=== PATIENT | female | born 1945 | race Caucasian/White ===

== ENCOUNTER 2022-01-03 21:42 | Outpatient (REF) | payer SELFPAY | END 2022-01-03 21:43 | disposition home or self-care (01) | LOC: HO.MMNH1L 21:42 | PROVIDERS: Visit Provider Family Medicine | DX: Z13.89 Encounter for screening for other disorder (principal) ==

== ENCOUNTER 2022-03-31 11:04 | Outpatient (REF) | payer SELFPAY ==
[2022-03-29 06:31] LABS: MANUAL DIFF FLAG NO
[2022-03-29 06:46] LABS: Basophils Percent Auto 0.7 % (0-2); Eosinophils Absolute Auto 0.2 X10*3/uL (0.0-0.4); Hematocrit 27.6 % (37.0-47.0); Hemoglobin 8.6 g/dl (12.0-16.0); Imm Gran Abs Auto 0.02 X10*3/uL (0.00-0.03); Imm Gran Pct Auto 0.4 % (0.0-0.4); Lymphocytes Absolute Auto 1.4 X10*3/uL (1.2-4.9); Lymphocytes Percent Auto 24.3 % (20-40); Mean Corpuscular HGB Conc 31.2 g/dl (31.0-35.0); Mean Corpuscular Volume 102.6 fL (80.0-98.0); Mean Platelet Volume 9.9 fL (9.4-12.3); Monocytes Absolute Auto 0.6 X10*3/uL (0.1-1.2); Monocytes Percent Auto 10.6 % (2-11); Neutrophils Absolute Auto 3.3 x10*3/uL (2.0-8.3); Platelet Count 244 X10*3/uL (160-400); Red Blood Count 2.69 X10*6/uL (4.20-5.50); Red Cell Distribution Width 16.3 % (11.0-16.0); White Blood Count 5.6 X10*3/uL (4.8-10.8)
[2022-03-29 07:49] LABS: Estimated Glomerular Filt Rate 10
[2022-03-29 07:52] LABS: Anion Gap 16 (12-20); Blood Urea Nitrogen 39 mg/dL (9-16); Calcium 9.9 mg/dL (8.4-10.2); Carbon Dioxide 33 mmol/L (22-29); Chloride 96 mmol/L (96-108); Glucose Random 99 mg/dL (60-115); Potassium 4.5 mmol/L (3.3-5.1); Sodium 140 mmol/L (135-145)
== END 2022-03-31 11:05 | disposition home or self-care (01) ==
LOC: HO.MMNH1L 11:04
PROVIDERS: Visit Provider Family Medicine
DX: N18.6 End stage renal disease (principal)
CPT/HCPCS: 36415; 80048; 85025

== ENCOUNTER 2022-04-04 | Outpatient (REF) | payer MEDICARE, SELFPAY | END 2022-04-04 00:01 | disposition home or self-care (01) | LOC: HO.MMNH1L | PROVIDERS: Visit Provider Family Medicine | DX: Z13.89 Encounter for screening for other disorder (principal) ==

== ENCOUNTER 2022-05-16 07:04 | Outpatient (REF) | payer SELFPAY ==
[2022-05-16 06:44] LABS: Hematocrit 34.2 % (37.0-47.0); Hemoglobin 10.7 g/dl (12.0-16.0); Mean Corpuscular HGB Conc 31.3 g/dl (31.0-35.0); Mean Corpuscular Hemoglobin 30.1 pg (27.0-33.0); Mean Corpuscular Volume 96.3 fL (80.0-98.0); Platelet Count 139 X10*3/uL (160-400); Red Blood Count 3.55 X10*6/uL (4.20-5.50); Red Cell Distribution Width 18.1 % (11.0-16.0); White Blood Count 8.9 X10*3/uL (4.8-10.8)
[2022-05-16 07:18] LABS: Anion Gap 20 (12-20); Blood Urea Nitrogen 62 mg/dL (9-16); Calcium 9.3 mg/dL (8.4-10.2); Carbon Dioxide 27 mmol/L (22-29); Chloride 92 mmol/L (96-108); Estimated Glomerular Filt Rate 7; Glucose Random 93 mg/dL (60-115); Sodium 134 mmol/L (135-145)
== END 2022-05-16 07:05 | disposition home or self-care (01) ==
LOC: HO.MMNH1L 07:04
PROVIDERS: Visit Provider Family Medicine
DX: N18.6 End stage renal disease (principal)
CPT/HCPCS: 36415; 80048; 85027

== ENCOUNTER 2022-05-23 06:16 | Outpatient (REF) | payer MEDICARE, SELFPAY ==
[2022-05-23 06:24] LABS: MANUAL DIFF FLAG NO
[2022-05-23 06:44] LABS: Basophils Absolute Auto 0.1 X10*3/uL (0.0-0.2); Basophils Percent Auto 0.7 % (0-2); Eosinophils Absolute Auto 0.2 X10*3/uL (0.0-0.4); Eosinophils Percent Auto 2.1 % (0-4); Hematocrit 29.7 % (37.0-47.0); Hemoglobin 9.2 g/dl (12.0-16.0); Imm Gran Abs Auto 0.03 X10*3/uL (0.00-0.03); Imm Gran Pct Auto 0.4 % (0.0-0.4); Lymphocytes Absolute Auto 0.7 X10*3/uL (1.2-4.9); Lymphocytes Percent Auto 9.3 % (20-40); Mean Corpuscular Hemoglobin 30.9 pg (27.0-33.0); Mean Corpuscular Volume 99.7 fL (80.0-98.0); Mean Platelet Volume 10.8 fL (9.4-12.3); Monocytes Absolute Auto 0.6 X10*3/uL (0.1-1.2); Monocytes Percent Auto 7.5 % (2-11); Neutrophils Absolute Auto 6.1 x10*3/uL (2.0-8.3); Platelet Count 183 X10*3/uL (160-400); Red Blood Count 2.98 X10*6/uL (4.20-5.50); Red Cell Distribution Width 18.4 % (11.0-16.0); White Blood Count 7.6 X10*3/uL (4.8-10.8)
[2022-05-23 07:33] LABS: Anion Gap 17 (12-20); Blood Urea Nitrogen 49 mg/dL (9-16); Calcium 9.3 mg/dL (8.4-10.2); Carbon Dioxide 26 mmol/L (22-29); Chloride 97 mmol/L (96-108); Estimated Glomerular Filt Rate 7; Glucose Random 89 mg/dL (60-115); Potassium 5.4 mmol/L (3.3-5.1); Sodium 135 mmol/L (135-145)
== END 2022-05-23 06:17 | disposition home or self-care (01) ==
LOC: HO.MMNH1L 06:16
PROVIDERS: Visit Provider Family Medicine
DX: N18.6 End stage renal disease (principal)
CPT/HCPCS: 36415; 80048; 85025

== ENCOUNTER 2022-05-30 06:36 | Outpatient (REF) | payer MEDICARE, SELFPAY ==
[2022-05-30 06:31] LABS: MANUAL DIFF FLAG NO
[2022-05-30 06:50] LABS: Basophils Percent Auto 0.5 % (0-2); Eosinophils Absolute Auto 0.2 X10*3/uL (0.0-0.4); Eosinophils Percent Auto 4.3 % (0-4); Hematocrit 29.5 % (37.0-47.0); Hemoglobin 9.1 g/dl (12.0-16.0); Imm Gran Abs Auto 0.01 X10*3/uL (0.00-0.03); Imm Gran Pct Auto 0.2 % (0.0-0.4); Lymphocytes Absolute Auto 0.9 X10*3/uL (1.2-4.9); Lymphocytes Percent Auto 15.7 % (20-40); Mean Corpuscular HGB Conc 30.8 g/dl (31.0-35.0); Mean Corpuscular Hemoglobin 30.7 pg (27.0-33.0); Mean Corpuscular Volume 99.7 fL (80.0-98.0); Mean Platelet Volume 10.9 fL (9.4-12.3); Monocytes Absolute Auto 0.6 X10*3/uL (0.1-1.2); Monocytes Percent Auto 9.9 % (2-11); Neutrophils Absolute Auto 3.9 x10*3/uL (2.0-8.3); Neutrophils Percent Auto 69.4 % (45-73); Platelet Count 134 X10*3/uL (160-400); Red Blood Count 2.96 X10*6/uL (4.20-5.50); Red Cell Distribution Width 18.9 % (11.0-16.0); White Blood Count 5.6 X10*3/uL (4.8-10.8)
[2022-05-30 07:33] LABS: Anion Gap 19 (12-20); Blood Urea Nitrogen 53 mg/dL (9-16); Carbon Dioxide 30 mmol/L (22-29); Chloride 95 mmol/L (96-108); Estimated Glomerular Filt Rate 7; Glucose Random 96 mg/dL (60-115); Sodium 139 mmol/L (135-145)
== END 2022-05-30 06:37 | disposition home or self-care (01) ==
LOC: HO.MMNH1L 06:36
PROVIDERS: Visit Provider Family Medicine
DX: S82.845D Nondisplaced bimalleolar fracture of left lower leg, subsequent encounter for closed fracture with routine healing (principal); N18.6 End stage renal disease
CPT/HCPCS: 36415; 80048; 85025

== ENCOUNTER 2022-06-03 16:17 | Inpatient (IN) | payer MEDICARE, BC, SELFPAY ==
[2022-06-03] VITALS (9 sets, daily range): BP systolic 90–141; BP diastolic 36–79; PULSE 64–87; RESP 13–33; TEMP 36.8–37.2; O2SAT 82–100; BMI 23.6
--- NOTE | ~2022-06-03 | XR_ITS ---
EXAMINATION: XR FOOT, LEFT CLINICAL INFORMATION: Pain. Question of osteomyelitis COMPARISON: None TECHNIQUE: AP, lateral, and oblique views of the left foot. XR/XR foot LT min 3V FINDINGS/IMPRESSION: Ulceration of the soft tissues posterior to the calcaneus and lateral to the fifth metatarsal base. Mild periosteal reaction along the lateral base of the fifth metatarsal, which could represent osteomyelitis in this location. No cortical destruction. Diffuse osseous demineralization. Previous arthrodesis of the tibiotalar and subtalar joints. No fractures.
--- NOTE | ~2022-06-03 | XR_ITS ---
EXAMINATION: XR CHEST CLINICAL INFORMATION: Chest pain, shortness of breath. COMPARISON: None TECHNIQUE: Frontal view of the chest was obtained. FINDINGS: There are increased pulmonary vascular markings. The heart is mildly enlarged. Aortic valve prosthesis is seen in place. The mediastinal structures are unremarkable. Multilevel sternotomy wires are intact. XR/XR chest 1V IMPRESSION: CHF and cardiomegaly
--- NOTE | ~2022-06-03 | XR_ITS ---
EXAMINATION: XR CHEST CLINICAL INFORMATION: This is a 77-year-old female with shortness of breath. Status post central line placement. COMPARISON: None TECHNIQUE: Frontal view of the chest was obtained. FINDINGS: A left-sided central venous catheter is seen with its tip extending to the junction of the brachiocephalic vein and the superior vena cava, respectively. There is no pneumothorax. There are increased pulmonary vascular markings. These appear increased since the most recent previous examination with increasing edema bilaterally. The heart is mildly enlarged. Aortic valve prosthesis is seen in place. The mediastinal structures are unremarkable. Multilevel sternotomy wires are intact. XR/XR chest 1V IMPRESSION: 1. The left-sided central venous catheter is seen with its tip at the junction of the brachiocephalic vein with the superior vena cava. No pneumothorax is seen. 2. CHF and cardiomegaly
--- NOTE | ~2022-06-03 | CT_ITS ---
EXAMINATION: CT ANGIOGRAM OF THE CHEST WITH AND WITHOUT CONTRAST (CT PULMONARY ANGIOGRAM FOR PE) CLINICAL INFORMATION: Reason for Exam + dimer, cp,s ob COMPARISON: None TECHNIQUE: Prior to contrast administration, noncontrast localization images were obtained. Subsequently, multidetector volumetric imaging was performed from the thoracic inlet to below the diaphragms following the administration of 65 mL Omnipaque 350 intravenous contrast. No contrast reaction reported Sagittal, coronal, and MIP oblique sagittal reformatted images were obtained on the CT workstation, uploaded to PACS, and reviewed. This CT examination was performed using dose optimization techniques as appropriate, variously including the following: *Automated exposure control *Adjustment of mA and/or kV according to patient size (this includes techniques or standardized protocols for targeted exams where dose is matched to indication/reason for exam; i.e. extremities or head) *Use of iterative reconstruction technique Total exam dose-length product 351 mGy-cm FINDINGS: QUALITY OF STUDY/CONTRAST BOLUS: Satisfactory. PULMONARY ARTERIES: No central or segmental pulmonary emboli. THORACIC AORTA: Atherosclerotic but normal caliber. Aortic valve replacement. LUNG: Low-density parenchymal consolidation throughout the dependent right lower lobe with patchy opacities throughout the right upper lobe compatible with multifocal pneumonia. Dependent atelectasis within the left lower lobe. Interstitial edema. PLEURA: Small-moderate right and small left pleural effusions. MEDIASTINUM: Marked cardiomegaly. No pericardial effusion. No obvious mediastinal adenopathy. No evidence of septal bowing or right heart strain. There is reflux of contrast into the hepatic veins suggestive of right heart failure. CHEST WALL/AXILLA: No axillary or internal mammary lymphadenopathy. OSSEOUS STRUCTURES: No acute or suspicious osseous abnormality. UPPER ABDOMEN: Unremarkable. CT/CT angio chest PE protocol IMPRESSION: * No pulmonary embolism. * Multifocal pneumonia within the right lung with dense consolidation within the right lower lobe, with accompanying small-moderate right pleural effusion. * Small left pleural effusion with accompanying atelectasis. * Marked cardiomegaly and interstitial edema or pelvis. * Reflux of contrast into the hepatic veins suggesting right heart decompensation. VTE: negative
--- NOTE | 2022-06-03 13:11 | ECG_ITS ---
Test Reason : CHEST PAIN Blood Pressure : / mmHG Vent. Rate : 091 BPM Atrial Rate : 000 BPM P-R Int : 000 ms QRS Dur : 134 ms QT Int : 416 ms P-R-T Axes : 000 -60 110 degrees QTc Int : 511 ms Probable sinus with frequent PACs and aberrant conduction Left axis deviation Left ventricular hypertrophy with QRS widening and repolarization abnormality ( R in aVL , Aldie product , Romhilt-James ) Cannot rule out Septal infarct (cited on or before 03-JUN-2022) Abnormal ECG When compared with ECG of 03-JUN-2022 16:47, possible rhythm change Referred By: Angeles Crawford Electronically Signed By:CRESCENCIO BARRETT
--- NOTE | 2022-06-03 16:38 | ECG_ITS ---
Test Reason : CHEST PAIN Blood Pressure : / mmHG Vent. Rate : 086 BPM Atrial Rate : 000 BPM P-R Int : 000 ms QRS Dur : 130 ms QT Int : 404 ms P-R-T Axes : 000 -64 097 degrees QTc Int : 483 ms Atrial fibrillation Left axis deviation Left ventricular hypertrophy with QRS widening ( R in aVL , Nasim product ) Cannot rule out Septal infarct , age undetermined Abnormal ECG No previous ECGs available Referred By: Angeles Crawford Electronically Signed By:ANNIE JULES MD
--- NOTE | 2022-06-03 16:45 | ED.GENADULT ---
HPI - General Adult General Chief complaint: Dyspnea Stated complaint: CP/SOB Time Seen by Provider: 06/03/22 16:37 Source: patient Mode of arrival: EMS Limitations: other (poor historian ) History of Present Illness HPI narrative: 77 year old female with a history of triple bypass, HD ( M,W,F, last HD) session today, diabetes presents to the ED today via EMS for chest discomfort and shortness of breath since this afternoon. EMS noted an O2 sat of 85% on room air, does not use oxygen at baseline. She reports that she was lying in bed when the chest pain started and rates her chest discomfort as a 2/10, told ems it was a 7/10. No radiation of symptoms. Associated symptoms include shortness of breath both at rest and with exertion. Unable to obtain a clear history due to patient being poor historian. Denies recent illness, fevers, chills, nausea, vomiting, abdominal pain, urinary sx. Upon patient's arrival she is noted to be speaking in short sentences with increased work of breathing. Related Data Allergies Allergy/AdvReac Type Severity Reaction Status Date / Time Unable to Assess Allergy Unverified 06/03/22 16:38 Review of Systems Review of Systems: Constitutional : No Weight loss, No Fever, No Chills, No Fatigue, No Malaise ENT/Mouth : No sore throat, No Rhinorrhea Eyes: No Eye Pain, No Swelling, No Redness Cardiovascular : + Chest Pain, + SOB, No Dyspnea on Exertion, No Orthopnea, No Edema, No Palpitations Respiratory : No Cough, No Sputum, No Wheezing Gastrointestinal : No Nausea, No Vomiting, No Diarrhea, No Constipation, No abdominal Pain, No Hematochezia, No Melena Genitourinary : No Dysuria, No Urinary Frequency, No Hematuria, Musculoskeletal : No joint pain, No Myalgias, No Joint Swelling Skin : No Skin Lesions, No rash Neuro : No Weakness, No Numbness, No Dizziness, No Headache Psych : No Anxiety/Panic, No Depression All other systems reviewed and are negative Yes all other systems are reviewed and are negative [facility] Past Medical History Attestation statement: The following information was validated with the patient. Source: old records reviewed and nursing notes reviewed Social History Social History Advance Directives: No Physical Exam ED Vital Signs: Vital Signs - 24 hr 06/03/22 16:42 06/03/22 17:52 06/03/22 17:54 Temperature 98.9 F Pulse Rate 87 81 Respiratory Rate 30 H 33 H 13 Blood Pressure 106/64 141/77 H Pulse Oximetry 93 98 Oxygen Delivery Method Nasal Cannula BiPAP Fraction of Inspired Oxygen 40 06/03/22 19:17 06/03/22 19:37 06/03/22 20:00 Temperature Pulse Rate 87 80 Respiratory Rate 21 H 26 H 24 H Blood Pressure 115/79 125/74 Pulse Oximetry 100 96 Oxygen Delivery Method BiPAP BiPAP Fraction of Inspired Oxygen BMI result Body Mass Index 23.6 Appearance: Alert.? Oriented X3.? No acute distress.? Head: Normocephalic, atraumatic, no step-offs or deformities Eyes: Pupils equal, round and reactive to light.? ENT: Pharynx normal.? Neck: Normal inspection.? Neck supple.? CVS: Normal heart rate and rhythm.? Pulses normal.? Respiratory: No respiratory distress.? Breath sounds normal.? Abdomen: Soft and nontender.? Skin: Skin warm and dry.? Normal skin color.? Normal skin turgor.? Extremities: No lower extremity edema.? No calf ttp. 5/5 strength to bilateral upper and lower extremities Back: No midline tenderness, no C-spine tenderness, full range of motion, no CVA tenderness bilaterally Neuro: Oriented X 3.? No motor deficit.? No sensory deficit. CN 2-12 intact Course Reevaluation(s) Reevaluation #1: Right 18 ultrasound-guided IV placed in the right AC, labs obtained. And waiting for analysis Time: 17:40 Reevaluation #2: Based off patient's chest x-ray she is noted to have CHF and cardiomegaly, will hold on administering fluids at this time. Time: 17:50 Reevaluation #3: Spoke to Dr. Mathis who recommends 2 in of nitropaste at this time as well as Dilaudid. Planned for patient to be admitted to the intensive care unit. Time: 18:37 Additional Reevaluation(s): [address] Jett Baer who states it is okay to proceed with a CT angiogram of the chest to rule out PE, he will plan for short treatment 2.5 hours of dialysis tomorrow. 2133 Patient will be admitted to the ICU CHF with hypoxic respiratory faliure. Second trop elevated. ICU aware Medical Decision Making MDM Narrative Medical decision making narrative: 1640 77-year-old female coming from [facility] facility with complaints of chest pressure, shortness of breath. Was noted to be 85 % on room air, patient is not oxygen dependent. She is noted to be tachypneic, hypotensive upon arrival. Physical examination significant for hypotension, tachypnea, hypoxia. Patient is now on a a oximeter eyes are at 10 L saturating 90%. Patient is noted to have diminished breath sounds bilaterally, with crackles in bilateral lower bases. She is noted to be in AFib upon physical exam. With a irregularly irregular rhythm. No signs of fluid overload. Patient mentating well and alert and oriented x4. Likley hypoxic, hypotensive secondary to CHF not infection. Plan at this time is to obtain blood cultures, lactic, basic labs, chest x-ray, urine by straight cath. Patient is a very difficult stick will have to obtain an ultrasound-guided line multiple nursing staff members have tried with no success. Medical Records Medical records reviewed: Yes I reviewed the patient's medical records. Lab Data Lab results reviewed: Yes I reviewed the patient's lab results. Result diagrams: 06/03/22 17:30 06/03/22 17:30 Labs: Lab Results 06/03/22 06/03/22 06/03/22 Range/Units 17:30 17:30 17:30 WBC 12.5 H (4.8-10.8) X10*3/uL RBC 3.75 L D (4.20-5.50) X10*6/uL Hgb 11.7 L D (12.0-16.0) g/dl Hct 37.8 D (37.0-47.0) % MCV 100.8 H (80.0-98.0) fL MCH 31.2 (27.0-33.0) pg MCHC 31.0 (31.0-35.0) g/dl RDW 18.8 H (11.0-16.0) % Plt Count 205 D (160-400) X10*3/uL MPV 10.5 (9.4-12.3) fL Immature Gran % (Auto) 0.4 (0.0-0.4) % Neut % (Auto) 86.9 H (45-73) % Lymph % (Auto) 3.9 L (20-40) % [place] % (Auto) 8.2 (2-11) % Eos % (Auto) 0.2 (0-4) % Baso % (Auto) 0.4 (0-2) % Lymph # (Auto) 0.5 L (1.2-4.9) X10*3/uL [place] # (Auto) 1.0 (0.1-1.2) X10*3/uL Eos # (Auto) 0.0 (0.0-0.4) X10*3/uL Baso # (Auto) 0.1 (0.0-0.2) X10*3/uL Abs Immat Gran (auto) 0.05 H (0.00-0.03) X10*3/uL Absolute Neuts (auto) 10.9 H (2.0-8.3) x10*3/uL Absolute Nucleated RBC 0.000 (0.0-0.012) X10*3/uL Nucleated RBC % (auto) 0.0 (0.0-0.2) /100WBC D-Dimer High Sensitivty NG/ML VBG pH (7.32-7.43) VBG pCO2 mmHg VBG pO2 mmHg VBG HCO3 (22-26) mmol/L VBG O2 Saturation % VBG Base Excess mmol/L Sodium 142 (135-145) mmol/L Potassium 4.1 (3.3-5.1) mmol/L Chloride 93 L (96-108) mmol/L Carbon Dioxide 35 H (22-29) mmol/L Anion Gap 18 (12-20) BUN 24 H D (9-16) mg/dL Creatinine 3.12 H (0.5-1.4) mg/dL Estim Creat Clear Calc 11.1 Estimated GFR 14 Random Glucose 181 H (60-115) mg/dL Lactic Acid (0.5-2.0) mmol/L Calcium 9.8 D (8.4-10.2) mg/dL Magnesium 2.2 (1.6-2.6) mg/dL Total Bilirubin 0.8 (0.0-1.0) mg/dL AST 14 (5-31) U/L ALT < 6 (0-31) U/L Alkaline Phosphatase 111 (39-117) U/L Troponin I High Sens 89.4 H* (<3.5-17.0) ng/L B-Natriuretic Peptide 95098 H (<100) pg/mL Total Protein 7.8 D (6.5-8.0) g/dL Albumin 4.1 D (3.5-5.0) g/dL COVID-19 (BELINDA) (Negative) COVID-19 Clin Com 06/03/22 06/03/22 06/03/22 Range/Units 17:30 17:30 17:30 WBC (4.8-10.8) X10*3/uL RBC (4.20-5.50) X10*6/uL Hgb (12.0-16.0) g/dl Hct (37.0-47.0) % MCV (80.0-98.0) fL MCH (27.0-33.0) pg MCHC (31.0-35.0) g/dl RDW (11.0-16.0) % Plt Count (160-400) X10*3/uL MPV (9.4-12.3) fL Immature Gran % (Auto) (0.0-0.4) % Neut % (Auto) (45-73) % Lymph % (Auto) (20-40) % [place] % (Auto) (2-11) % Eos % (Auto) (0-4) % Baso % (Auto) (0-2) % Lymph # (Auto) (1.2-4.9) X10*3/uL [place] # (Auto) (0.1-1.2) X10*3/uL Eos # (Auto) (0.0-0.4) X10*3/uL Baso # (Auto) (0.0-0.2) X10*3/uL Abs Immat Gran (auto) (0.00-0.03) X10*3/uL Absolute Neuts (auto) (2.0-8.3) x10*3/uL Absolute Nucleated RBC (0.0-0.012) X10*3/uL Nucleated RBC % (auto) (0.0-0.2) /100WBC D-Dimer High Sensitivty 539 NG/ML VBG pH (7.32-7.43) VBG pCO2 mmHg VBG pO2 mmHg VBG HCO3 (22-26) mmol/L VBG O2 Saturation % VBG Base Excess mmol/L Sodium (135-145) mmol/L Potassium (3.3-5.1) mmol/L Chloride (96-108) mmol/L Carbon Dioxide (22-29) mmol/L Anion Gap (12-20) BUN (9-16) mg/dL Creatinine (0.5-1.4) mg/dL Estim Creat Clear Calc Estimated GFR Random Glucose (60-115) mg/dL Lactic Acid 2.6 H* (0.5-2.0) mmol/L Calcium (8.4-10.2) mg/dL Magnesium (1.6-2.6) mg/dL Total Bilirubin (0.0-1.0) mg/dL AST (5-31) U/L ALT (0-31) U/L Alkaline Phosphatase (39-117) U/L Troponin I High Sens (<3.5-17.0) ng/L B-Natriuretic Peptide (<100) pg/mL Total Protein (6.5-8.0) g/dL Albumin (3.5-5.0) g/dL COVID-19 (BELINDA) Negative (Negative) COVID-19 Clin Com See Note 06/03/22 Range/Units 17:39 WBC (4.8-10.8) X10*3/uL RBC (4.20-5.50) X10*6/uL Hgb (12.0-16.0) g/dl Hct (37.0-47.0) % MCV (80.0-98.0) fL MCH (27.0-33.0) pg MCHC (31.0-35.0) g/dl RDW (11.0-16.0) % Plt Count (160-400) X10*3/uL MPV (9.4-12.3) fL Immature Gran % (Auto) (0.0-0.4) % Neut % (Auto) (45-73) % Lymph % (Auto) (20-40) % [place] % (Auto) (2-11) % Eos % (Auto) (0-4) % Baso % (Auto) (0-2) % Lymph # (Auto) (1.2-4.9) X10*3/uL [place] # (Auto) (0.1-1.2) X10*3/uL Eos # (Auto) (0.0-0.4) X10*3/uL Baso # (Auto) (0.0-0.2) X10*3/uL Abs Immat Gran (auto) (0.00-0.03) X10*3/uL Absolute Neuts (auto) (2.0-8.3) x10*3/uL Absolute Nucleated RBC (0.0-0.012) X10*3/uL Nucleated RBC % (auto) (0.0-0.2) /100WBC D-Dimer High Sensitivty NG/ML VBG pH 7.46 H (7.32-7.43) VBG pCO2 54 mmHg VBG pO2 52 mmHg VBG HCO3 39 H (22-26) mmol/L VBG O2 Saturation 79.0 % VBG Base Excess 13.1 mmol/L Sodium (135-145) mmol/L Potassium (3.3-5.1) mmol/L Chloride (96-108) mmol/L Carbon Dioxide (22-29) mmol/L Anion Gap (12-20) BUN (9-16) mg/dL Creatinine (0.5-1.4) mg/dL Estim Creat Clear Calc Estimated GFR Random Glucose (60-115) mg/dL Lactic Acid (0.5-2.0) mmol/L Calcium (8.4-10.2) mg/dL Magnesium (1.6-2.6) mg/dL Total Bilirubin (0.0-1.0) mg/dL AST (5-31) U/L ALT (0-31) U/L Alkaline Phosphatase (39-117) U/L Troponin I High Sens (<3.5-17.0) ng/L B-Natriuretic Peptide (<100) pg/mL Total Protein (6.5-8.0) g/dL Albumin (3.5-5.0) g/dL COVID-19 (BELINDA) (Negative) COVID-19 Clin Com Critical Care Time Critical Care Time Critical Care Time: Yes Total Critical Care Time: 70 Attestation: I attest to this time spent taking care of the patient, obtaining history, physical, reviewing labs, imaging, speaking to my attending, speaking to specialist. Discharge Plan Discharge Clinical Impression: Congestive heart failure, Chest pain, Respiratory failure Patient Disposition: Home, Self-Care
[2022-06-03 17:35] LABS: MANUAL DIFF FLAG NO
[2022-06-03 17:38] LABS: Basophils Absolute Auto 0.1 X10*3/uL (0.0-0.2); Basophils Percent Auto 0.4 % (0-2); Eosinophils Percent Auto 0.2 % (0-4); Hematocrit 37.8 % (37.0-47.0); Hemoglobin 11.7 g/dl (12.0-16.0); Imm Gran Abs Auto 0.05 X10*3/uL (0.00-0.03); Imm Gran Pct Auto 0.4 % (0.0-0.4); Lymphocytes Absolute Auto 0.5 X10*3/uL (1.2-4.9); Lymphocytes Percent Auto 3.9 % (20-40); Mean Corpuscular Hemoglobin 31.2 pg (27.0-33.0); Mean Corpuscular Volume 100.8 fL (80.0-98.0); Mean Platelet Volume 10.5 fL (9.4-12.3); Monocytes Percent Auto 8.2 % (2-11); Neutrophils Absolute Auto 10.9 x10*3/uL (2.0-8.3); Neutrophils Percent Auto 86.9 % (45-73); Platelet Count 205 X10*3/uL (160-400); Red Blood Count 3.75 X10*6/uL (4.20-5.50); Red Cell Distribution Width 18.8 % (11.0-16.0); White Blood Count 12.5 X10*3/uL (4.8-10.8)
[2022-06-03 17:43] LABS: Venous Blood Gas Refer to POC result
[2022-06-03 17:43] LABS: VBG Base Excess 13.1 mmol/L; VBG HCO3 39 mmol/L (22-26); VBG pCO2 54 mmHg; VBG pH 7.46 (7.32-7.43); VBG pO2 52 mmHg
[2022-06-03 17:46] LABS: D Dimer High Sensitivity 539 NG/ML
--- NOTE | 2022-06-03 17:49 | PC.NURSE ---
patient a/o x4 . presented to ED on 4 l 93 , labored breathing with use of axillary muscles . difficulty obtaining IV accesses . patient began to have increased difficulty breathing and maintaining an oxygen level above 89 on the oxymizer . respiratory therapy contacted and patient put on bipap oxygen levels improved to 96 % . Bipap setting 10 /5 . 40 % FIO2 . patient tolerating with redirection . Iv placement obtained with ultrasound by provider . labs sent . patient aware of care .
[2022-06-03 17:56] LABS: COVID-19 Test Negative (Negative)
[2022-06-03 17:58] LABS: Alanine Aminotransferase < 6 U/L (0-31); Albumin Level 4.1 g/dL (3.5-5.0); Alkaline Phosphatase 111 U/L (39-117); Anion Gap 18 (12-20); Aspartate Amino Transferase 14 U/L (5-31); Bilirubin Total 0.8 mg/dL (0.0-1.0); Blood Urea Nitrogen 24 mg/dL (9-16); Calcium 9.8 mg/dL (8.4-10.2); Carbon Dioxide 35 mmol/L (22-29); Chloride 93 mmol/L (96-108); Creatinine Clr Calc Pharmacy 11.1; Estimated Glomerular Filt Rate 14; Glucose Random 181 mg/dL (60-115); Lactic Acid 2.6 mmol/L (0.5-2.0); Magnesium 2.2 mg/dL (1.6-2.6); Potassium 4.1 mmol/L (3.3-5.1); Sodium 142 mmol/L (135-145); Total Protein 7.8 g/dL (6.5-8.0)
[2022-06-03 18:08] LABS: Troponin-I High Sensitivity 89.4 ng/L (<3.5-17.0)
[2022-06-03] MEDS: cefTRIAXone sodium 1 GM in 0.9 % Sodium Chloride 50 ML IV (18:15)
[2022-06-03 18:22] LABS: B Type Natriuretic Peptide 11896 pg/mL (<100)
[2022-06-03] MEDS: HYDROmorphone HCl 0.5 MG/0.5 ML SYRINGE IVPUSH (19:04)
--- NOTE | 2022-06-03 19:10 | PC.NURSE ---
report received from Rojelio Eaton. will assume care of pt at 1915. pt on bipap. receiving IV dilaudid for respiratory rate, continuous monitoring in place.
[2022-06-03 19:34] LABS: Reflex Lactate? Lactic Acid Added
[2022-06-03 21:35] LABS: ~Lactic Acid-LAB USE ONLY 4.7 mmol/L (0.5-2.0)
[2022-06-03 21:36] LABS: Troponin-I High Sensitivity 162.1 ng/L (<3.5-17.0)
--- NOTE | 2022-06-03 21:37 | PC.NURSE ---
Reported critical labs to ALEIDA Hyde and provider KARMEN Owen of lactic 4.7 and Trop of 162.1
--- NOTE | 2022-06-03 22:31 | PC.NURSE ---
central line placed by ICU PAStefani. Respiratory and RN at bedside. continuous monitoring in place.
--- NOTE | 2022-06-03 22:37 | PHA.MEDREC ---
Pharmacy Consult ? Medication Reconciliation Pharmacy has completed the medication reconciliation. Based med rec on rehab list
--- NOTE | 2022-06-03 22:43 | P.HPCC_ITS ---
History of Present Illness Date of Service: 06/03/22 Attending physician on admission: Tavo Mathis Chief Complaint: acute respiratory failure Patient is a 69-year-old female who was brought in by ambulance from a correction facility, [facility], after complaining of chest discomfort and shortness of breath this afternoon. Patient has a history an aortic valve replacement, triple bypass, ESRD on dialysis, Monday, she had dialysis today, PVD, T2DM, afib not on a blood thinner, on aspirin, HTN, HLD, anxiety, MDD, TIARA, GERD and Gout. EMS reported an O2 sat of 85% on RA in states that the patient reported chest pain at a level of 7/10. Upon arrival to the emergency department, the patient reported to the provider her chest pain was a 2/10, her pain did not radiate, and she denied any recent illness, fever, chills, nausea, vomiting abdominal pain or urinary symptoms. She did however endorse shortness of breath both at rest and with exertion. In the ED, her vitals were heart rate 87 in afib, respiratory rate 30, BP 106/64, O2 sat 93% on 5L NC. In the ED, her labs were significant for WBC 12.5, d dimer 539, serum bicarb 35, BUN 24, Cr 3.12, Lactic acid 2.6, troponin 89.4, BNP 11,896, BC pending. Repeat labs showed lactic acid 4.7. Pt cannot get fluids as she is in CHF. Pt was given zofran, 1g ceftriaxone, 500mL NS, 10mg lasix, 0.5mg dilauded. Dr Jett Baer - nephrology - is aware of pt, will arrage for 2.5hrs dialysis tomorrow. At my bedside exam, pt was off the BiPAP, tachypneic, nauseas and gagging, denied chest pain or chest discomfort and felt short of breath. right sided lung sounds diminshed, left sided crackles and bronchovesicular sounds. Dr Mathis did a bedside echo which revealed IVC 1.9 with minimal inspiratory collapse, thickened LV wall, EF around 60%. Pt had no IV access (difficult to find access, one IV placed but got ripped out) so I placed a TLC. Pt will be transferred to the ICU for hypoxic respiratory failure with CHF. Dr Stemp aware, agrees with assessment and plan. Review of Systems Review of Systems: Yes all other systems are reviewed and are negative [facility] Past Medical History Medical History (Updated 06/04/22 @ 05:48 by Stefani Nassar PA-C) Atrial fibrillation CHF (congestive heart failure) Heart murmur Hypertension Surgical History Surgical History H/O coronary artery bypass surgery Social History Social History Household Members: Other Housing: [facility] Unable to assess alcohol history related to: Unknown Patient Tobacco Use Status: Tobacco use Unknown Frequency of e-Cigarette/Vaping Use: UNKNOWN Use of substances other than those prescribed or required for medical reasons: Unknown Currently Displaying Signs/Symptoms of Drug Intoxication Withdrawal: No Have you been hit, kicked, punched, or otherwise hurt by someone within the past year? If so, by whom?: No Advance Directives: No Do you have thoughts of harming others: None Do you have a plan to hurt others: No Plan How much weight loss: Unsure Nutrition Risks: On aspiration precautions Patient : No : No Poor oral hygiene: No Meds Allergies Allergy/AdvReac Type Severity Reaction Status Date / Time Unable to Assess Allergy Unverified 06/03/22 16:38 Home Medications Medication Instructions Recorded Confirmed Last Taken Type acetaminophen 325 mg tablet 650 mg PO Q6H PRN Pain 06/03/22 06/03/22 Unknown History allopurinol 100 mg tablet 1 tab PO DAILY 06/03/22 06/03/22 Unknown History amlodipine 5 mg tablet 1 tab PO DAILY 06/03/22 06/03/22 Unknown History aspirin 81 mg tablet,delayed 81 mg PO DAILY 06/03/22 06/03/22 Unknown History release calcitriol 0.5 mcg capsule 2 mcg PO MOWEFR@0900 06/03/22 06/03/22 Unknown History collagenase clostridium histo. 250 1 appl topical DAILY PRN PRN 06/03/22 06/03/22 Unknown History unit/gram topical ointment (Santyl) docusate sodium 100 mg capsule 100 mg PO BID 06/03/22 06/03/22 Unknown History epoetin stefanie 20,000 unit/mL 20,000 unit subcut MO@0900 06/03/22 06/03/22 Unknown History injection solution famotidine 20 mg tablet 1 tab PO BID 06/03/22 06/03/22 Unknown History gabapentin 100 mg capsule 1 cap PO TID 06/03/22 06/03/22 Unknown History hydrocortisone 1 % topical cream 1 appl GA DAILY PRN Rectal 06/03/22 06/03/22 Unknown History with perineal applicator Discomfort lactulose 20 gram/30 mL oral 20 g PO Q24H 06/03/22 06/03/22 Unknown History solution loperamide 2 mg tablet 2 mg PO Q4H PRN Loose Stool 06/03/22 06/03/22 Unknown History metoprolol tartrate 25 mg tablet 25 mg PO SUTUTHSA@0906/03/22 06/03/22 Unknown History ondansetron 4 mg disintegrating 4 mg PO Q8H PRN Nausea And Vomiting 06/03/22 06/03/22 Unknown History tablet polyethylene glycol 3350 17 gram 17 g PO BID 06/03/22 06/03/22 Unknown History oral powder packet (Miralax) pravastatin 20 mg tablet 1 tab PO DAILY 06/03/22 06/03/22 Unknown History sertraline 100 mg tablet 1 tab PO DAILY 06/03/22 06/03/22 Unknown History sevelamer carbonate 800 mg tablet 2 tab PO BID@1200,1700 06/03/22 06/03/22 Unknown History trazodone 150 mg tablet 1 tab PO BEDTIME 06/03/22 06/03/22 Unknown History Physical Exam Vital Signs: Vital Signs: Last Vital Signs Temp 98.3 F 06/03/22 22:27 Pulse 86 06/03/22 22:27 Resp 31 H 06/03/22 22:40 BP 90/36 L 06/03/22 22:27 Pulse Ox 82 L 06/03/22 22:27 O2 Del Method 06/03/22 20:00 O2 Flow Rate 15 06/03/22 22:27 FiO2 40 06/03/22 17:54 Oxygen Flow Rate 5 06/03/22 16:42 BMI result Body Mass Index 23.6 Const: General: cooperative, acute distress (tachypneic) mild and tired appearing Nutritional Appearance: cachectic Orientation/consciousness: patient oriented x3 HEENT: Head: Yes normal to inspection, Yes No palpable skull fracture present, Yes normocephalic and Yes atraumatic General nose exam: Normal external nose present Face and sinus: Yes normal facial exam Eyes: General: appearance normal, both eyes and all related structures Pupils: Equal, round and reactive pupils present EOM: EOMs intact bilaterally Neck: Neck: Yes normal visual inspection, Yes full ROM, Yes no meningeal signs, Yes trachea midline and Yes supple Chest: Chest palpation & inspection: normal inspection of the chest Resp: Effort & Inspection: able to speak in complete sentences, tachypneic (30's) and uses accessory muscles Auscultation: crackles on the right, diminished lung sounds on the left and bronchovesicular breath sounds on the right (lower lobe) Cardio: Jugular venous distension: no JVD Rate: regular rate Rhythm: abnormal rhythm irregularly irregular Heart sounds: Murmur heart sound present and normal S1 and S2 GI: Inspection: Yes normal to inspection Palpation (GI): Soft to palpation and nontender Neuro: General: patient oriented x3, no meningeal signs and Unable to assess gait Cranial nerves: Yes Equal, round and reactive pupils present Cognition (Neuro): abnormal cognition Gait exam (Neuro): Unable to assess gait Extrem: General: Yes no pedal edema Left lower extremity: foot (left heel posterior 2cm x 4cm ulcerated lesion w/purulence, purple surround) Details: warmth (left heel posterior and midfoot) and other (1cm circular purulent ulcer with purple surrounding ); no tenderness Results Labs CBC and Chem 7: 06/04/22 05:16 06/04/22 05:16 Labs: Laboratory Results - last 24 hr 06/03/22 06/03/22 06/03/22 17:30 17:30 17:30 MCV 100.8 H MCH 31.2 MCHC 31.0 RDW 18.8 H Plt Count 205 D MPV 10.5 Immature Gran % (Auto) 0.4 Neut % (Auto) 86.9 H Lymph % (Auto) 3.9 L [place] % (Auto) 8.2 Eos % (Auto) 0.2 Baso % (Auto) 0.4 Lymph # (Auto) 0.5 L [place] # (Auto) 1.0 Eos # (Auto) 0.0 Baso # (Auto) 0.1 Abs Immat Gran (auto) 0.05 H Absolute Neuts (auto) 10.9 H Absolute Nucleated RBC 0.000 Nucleated RBC % (auto) 0.0 D-Dimer High Sensitivty VBG pH VBG pCO2 VBG pO2 VBG HCO3 VBG O2 Saturation VBG Base Excess Anion Gap 18 Estim Creat Clear Calc 11.1 Estimated GFR 14 Random Glucose 181 H Lactic Acid Lactic Acid F/U @ 2Hr Calcium 9.8 D Magnesium 2.2 Total Bilirubin 0.8 AST 14 ALT < 6 Alkaline Phosphatase 111 B-Natriuretic Peptide 03510 H Total Protein 7.8 D Albumin 4.1 D COVID-19 (BELINDA) COVID-19 Clin Com 06/03/22 06/03/22 06/03/22 17:30 17:30 17:30 MCV MCH MCHC RDW Plt Count MPV Immature Gran % (Auto) Neut % (Auto) Lymph % (Auto) [place] % (Auto) Eos % (Auto) Baso % (Auto) Lymph # (Auto) [place] # (Auto) Eos # (Auto) Baso # (Auto) Abs Immat Gran (auto) Absolute Neuts (auto) Absolute Nucleated RBC Nucleated RBC % (auto) D-Dimer High Sensitivty 539 VBG pH VBG pCO2 VBG pO2 VBG HCO3 VBG O2 Saturation VBG Base Excess Anion Gap Estim Creat Clear Calc Estimated GFR Random Glucose Lactic Acid 2.6 H* Lactic Acid F/U @ 2Hr Calcium Magnesium Total Bilirubin AST ALT Alkaline Phosphatase B-Natriuretic Peptide Total Protein Albumin COVID-19 (BELINDA) Negative COVID-19 Clin Com See Note 06/03/22 06/03/22 17:39 21:00 MCV MCH MCHC RDW Plt Count MPV Immature Gran % (Auto) Neut % (Auto) Lymph % (Auto) [place] % (Auto) Eos % (Auto) Baso % (Auto) Lymph # (Auto) [place] # (Auto) Eos # (Auto) Baso # (Auto) Abs Immat Gran (auto) Absolute Neuts (auto) Absolute Nucleated RBC Nucleated RBC % (auto) D-Dimer High Sensitivty VBG pH 7.46 H VBG pCO2 54 VBG pO2 52 VBG HCO3 39 H VBG O2 Saturation 79.0 VBG Base Excess 13.1 Anion Gap Estim Creat Clear Calc Estimated GFR Random Glucose Lactic Acid Lactic Acid F/U @ 2Hr 4.7 H* Calcium Magnesium Total Bilirubin AST ALT Alkaline Phosphatase B-Natriuretic Peptide Total Protein Albumin COVID-19 (BELINDA) COVID-19 Clin Com Imaging Radiologist's Impressions: Impressions Chest X-Ray 06/03/22 16:50 IMPRESSION: CHF and cardiomegaly Comment: [address] [id number] Scan ReportSigned Patient: Rehana Enrique#: [id number]: 4Acct:[id number]/Sex: 77 / FADM Date: 06/03/22Loc: [id number] Dr: Stefani Nassar PA-C Ordering Physician: Angeles Crawford Date of Service: 06/03/22 Procedure(s): CT angio chest PE protocol Accession Number(s): [id number] cc: Angeles Crawford~ EXAMINATION: CT ANGIOGRAM OF THE CHEST WITH AND WITHOUT CONTRAST (CT PULMONARY ANGIOGRAM FOR PE) CLINICAL INFORMATION: Reason for Exam + dimer, cp,s ob COMPARISON: None TECHNIQUE: Prior to contrast administration, noncontrast localization images were obtained. Subsequently, multidetector volumetric imaging was performed from the thoracic inlet to below the diaphragms following the administration of 65 mL Omnipaque 350 intravenous contrast. No contrast reaction reported Sagittal, coronal, and MIP oblique sagittal reformatted images were obtained on the CT workstation, uploaded to PACS, and reviewed. This CT examination was performed using dose optimization techniques as appropriate, variously including the following: *Automated exposure control *Adjustment of mA and/or kV according to patient size (this includes techniques or standardized protocols for targeted exams where dose is matched to indication/reason for exam; i.e. extremities or head) *Use of iterative reconstruction technique Total exam dose-length product 351 mGy-cm FINDINGS: QUALITY OF STUDY/CONTRAST BOLUS: Satisfactory. PULMONARY ARTERIES: No central or segmental pulmonary emboli. THORACIC AORTA: Atherosclerotic but normal caliber. Aortic valve replacement. LUNG: Low-density parenchymal consolidation throughout the dependent right lower lobe with patchy opacities throughout the right upper lobe compatible with multifocal pneumonia. Dependent atelectasis within the left lower lobe. Interstitial edema. PLEURA: Small-moderate right and small left pleural effusions. MEDIASTINUM: Marked cardiomegaly. No pericardial effusion. No obvious mediastinal adenopathy. No evidence of septal bowing or right heart strain. There is reflux of contrast into the hepatic veins suggestive of right heart failure. CHEST WALL/AXILLA: No axillary or internal mammary lymphadenopathy. OSSEOUS STRUCTURES: No acute or suspicious osseous abnormality. UPPER ABDOMEN: Unremarkable. CT/CT angio chest PE protocol IMPRESSION: * No pulmonary embolism. * Multifocal pneumonia within the right lung with dense consolidation within the right lower lobe, with accompanying small-moderate right pleural effusion. * Small left pleural effusion with accompanying atelectasis. * Marked cardiomegaly and interstitial edema or pelvis. * Reflux of contrast into the hepatic veins suggesting right heart decompensation. VTE: negative Dictated By:Scooter Miranda MDSigned By:<Electronically signed by Scooter Miranda MD in OV>06/04/22 0026 DD/ [id number]: Manager Program Management: ELSY Assessment and Plan (1) Congestive heart failure: Status: Acute Dr Baer ordered dialysis for tomorrow; (2) Respiratory failure: Status: Acute Pt on Bipap, follow vbg (3) ESRD on dialysis: Status: Acute Dr Baer ordered dialysis for tomorrow (4) Ulcer of left heel and midfoot: Status: Acute will get xray to r/o osteomyelitis, cultures sent for both areas; pt already rec'd ceftriaxone (5) Elevated troponin I level: Status: Acute initial troponin 89.4, 3.5 hrs later it krishna to 162.1, repeat EKG is similar to previous. Pt denies any chest pain, neck pain, back pain, arm numbness or nausea. Will trend but likely elevated due to ESRD. (6) Multifocal pneumonia: Status: Acute on BiPAP, given 1g Ceftriaxone Unclear if this is sepsis, tending to think it's not. LA rising, 2.6 at 5:30pm, 4.7 at 9pm, BP getting soft; PNA likely the source of severe sepsis, patient already received 1 g of ceftriaxone this evening in the emergency department, blood cultures have been drawn and are pending. Sepsis bolus exclusion form completed to be thorough but I do not think this is sepsis. Patient is end-stage renal disease on HD with CHF and is clearly fluid overloaded as BNP is 11,896. However, pt also has 2 ulcers which look infected on the foot, getting XR to verify not osteomyelitis. Procalcitonin 0.51. Plan heparin and pneumo boots DVT prophylaxis Lactic acid rising however pt is ESRD so likely LA not being cleared properly as per Dr Mathis, cancel LA and draw with AM labs. Critical Care Time Critical Care Time (minutes): 150
[2022-06-03 23:04] LABS: Reflex Lactate? 2 Y
[2022-06-03] MEDS: iohexoL 350 MG/ML 100 ML INFUS..BTL 65 ML IV (23:50)
[2022-06-04] VITALS (21 sets, daily range): BP systolic 54–153; BP diastolic 35–85; PULSE 49–85; RESP 13–28; TEMP 30–36.6; O2SAT 89–99; BMI 24.6
[2022-06-04] MEDS: Heparin Sodium,Porcine 5,000 UNIT/ML VIAL 5000 UNIT SUBCUT ×2 (00:17→07:43)
[2022-06-04] MEDS: Furosemide 20 MG/2 ML VIAL IVPUSH (00:17)
--- NOTE | 2022-06-04 00:17 | PM.SEPBOLA3 ---
Sepsis Bolus Exclusion Sepsis Bolus Exclusion Date of Occurrence: 06/03/22 This patient met severe sepsis criteria due to the following condition(s):: Hypotension and Lactate>=4mmol/L In my clinical judgement the administration of 30 ml/kg of crystalloid would be detrimental to this patient due to the patient's following conditions:: Stage III or IV Chronic Kidney Disease (GFR<30) and Concern for fluid overload Other (must be specific):: ESRD on HD, also BNP 07373, unclear if pt actually septic Replace the 30 mls/kg with (*zero amount not acceptable): *Note: One of the lemus must be documented
[2022-06-04 00:21] LABS: VBG Base Excess 2.9 mmol/L; VBG HCO3 28 mmol/L (22-26); VBG pCO2 49 mmHg; VBG pH 7.37 (7.32-7.43); VBG pO2 61 mmHg
[2022-06-04 00:27] LABS: Basophils Absolute Auto 0.1 X10*3/uL (0.0-0.2); Basophils Percent Auto 0.3 % (0-2); Eosinophils Percent Auto 0.1 % (0-4); Hematocrit 37.1 % (37.0-47.0); Hemoglobin 11.3 g/dl (12.0-16.0); Imm Gran Abs Auto 0.14 X10*3/uL (0.00-0.03); Imm Gran Pct Auto 0.8 % (0.0-0.4); Lymphocytes Absolute Auto 0.4 X10*3/uL (1.2-4.9); Lymphocytes Percent Auto 2.5 % (20-40); MANUAL DIFF FLAG SCAN; Mean Corpuscular HGB Conc 30.5 g/dl (31.0-35.0); Mean Corpuscular Hemoglobin 31.1 pg (27.0-33.0); Mean Corpuscular Volume 102.2 fL (80.0-98.0); Mean Platelet Volume 10.4 fL (9.4-12.3); Monocytes Absolute Auto 1.8 X10*3/uL (0.1-1.2); Monocytes Percent Auto 10.5 % (2-11); Neutrophils Absolute Auto 14.5 x10*3/uL (2.0-8.3); Neutrophils Percent Auto 85.8 % (45-73); Platelet Count 212 X10*3/uL (160-400); Red Blood Count 3.63 X10*6/uL (4.20-5.50); SCAN SMEAR FLAG 1; White Blood Count 16.9 X10*3/uL (4.8-10.8)
[2022-06-04 00:30] LABS: Venous Blood Gas Refer to POC result
[2022-06-04 00:40] LABS: SLIDE REVIEW VERIFIED
[2022-06-04 00:46] LABS: Alanine Aminotransferase 6 U/L (0-31); Albumin Level 3.7 g/dL (3.5-5.0); Alkaline Phosphatase 112 U/L (39-117); Anion Gap 19 (12-20); Aspartate Amino Transferase 17 U/L (5-31); Bilirubin Total 0.8 mg/dL (0.0-1.0); Blood Urea Nitrogen 28 mg/dL (9-16); Calcium 9.5 mg/dL (8.4-10.2); Carbon Dioxide 30 mmol/L (22-29); Chloride 94 mmol/L (96-108); Creatinine Clr Calc Pharmacy 10.8; Estimated Glomerular Filt Rate 13; Glucose Random 238 mg/dL (60-115); Magnesium 2.2 mg/dL (1.6-2.6); Phosphorus 5.9 mg/dL (2.7-4.5); Potassium 3.6 mmol/L (3.3-5.1); Sodium 139 mmol/L (135-145)
[2022-06-04 00:50] LABS: Troponin-I High Sensitivity 259.1 ng/L (<3.5-17.0); ~Lactic Acid-LAB USE ONLY 6.2 mmol/L (0.5-2.0)
[2022-06-04 01:29] LABS: INTERNATIONAL NORM RATIO 1.1 (0.9-1.1); Prothrombin Time 12.6 SEC (10.0-13.1)
--- NOTE | 2022-06-04 01:43 | W.PM.CCHP ---
Procedures Date of Service Date of Service: 06/03/22 Central Line Placement Left IJ: Central Line Comments: venous access needed, written consent obtained from pt Time out performed: Yes Sterile Technique Used: Yes Patient placed on monitor/pulse ox: Yes MD prep: mask, gown and gloves Central line prep: Chlorhexidine scrub and sterile drapes applied Local anesthesia used: lidocaine 1% Amount of anesthesia used (ml): 4 Ultrasound used for placement: Yes Central line lumen inserted: triple Post procedure: sutured in place, good blood return, all ports aspirated, flushed, capped and sterile dressing applied Post procedure x-ray: tip of catheter in good position and no pneumothorax seen Patient tolerated procedure: well and no complications Complications: none
[2022-06-04] MEDS: Albumin Human 25 % 100 ML IV ×2 (01:53→02:26)
[2022-06-04 01:59] LABS: Procalcitonin 0.51 ng/mL
[2022-06-04 02:24] LABS: Cancel Lactic Acid Canceled
--- NOTE | 2022-06-04 02:37 | PC.NURSE ---
PT TO ICU AT 2350 RESPONSIVE, DROWSY BUT FOLLOWING COMMANDS. NOT ABLE TO OBTAIN HISTORY FROM PT SHE IS A POOR HISTORIAN AND NOT ABLE TO ANSWER QUESTIONS. SHE IS ORIENTED TO PLACE BUT NOT TO TIME OR SITUATION. RESP RATE UP TO 28. RESP THERAPY AT BEDSIDE ON ARRIVAL AND PUT PT ON BIPAP FACEMASK. O2 WAS 70% BUT INCREASED TO 100% TO MAINTAIN SAT >90%. JANAE CASTRO AT BEDSIDE. CRITICAL LABS REPORTED TO JANAE, TROPONIN 259.1 AND LACTIC OF 6.2. PLAN IS TO DIALIZE PT IN AM. LEFT UPPER ARM FISTULA NOTED. POS BRUIT, POS THRILL. AYOUB WAS INSERTED IN THE ER. NO URINE OUTPUT NOTED. BP WAS 98/57 ON ARRIVAL. PT WAS STARTED ON LEVOPHED AND CURRENTLY INFUSING AT 0.05 MCG/KG/MIN. LEFT FOOT DSG REMOVED. PRESSURE INJURY TO LEFT HEEL AND LEFT MID LATERAL FOOT NOTED. CULTURES TAKEN OF BOTH WOUNDS AND XRAY TAKEN.
[2022-06-04] MEDS: Azithromycin 500 MG in 0.9 % Sodium Chloride 250 ML 125 MG IV (03:36)
[2022-06-04] MEDS: Haloperidol Lactate 5 MG/ML VIAL 1 MG IVPUSH (04:00)
--- NOTE | 2022-06-04 04:54 | P.PNCC_ITS ---
Critical Care Event Note Summary Date of Service: 06/04/22 Code activated: Yes Narrative: This case had a high probability of a clinically significant, sudden, or life threatening deterioration of this patient's condition which required my full and direct attention, intervention and personal management. Critical Care Time (minutes): 60 Comment: 4:30am pt was sleeping and woke up suddenly saying she had to get out of here , was flipping from side to side and suddenly stopped breathing, the rhythm was bradycardic with a rate in the 30's however with a pulse check became PEA. The RT, Grey, and I were both in the room and he immediately started chest compressions. An overhead Code Blue was called. Dr Paiz intubated the pt. We did CPR for 10 minutes, including 3 rounds of EPI, 2 amps of bicarb and one calcium chloride. We achieved ROSC at 4:40am. EKG was done showing ST elevations in V2 and V3 with deep R-wave, likely septal TN. I spoke with Dr. Mathis to advise. I then called the patient's , Aly Enrique. I explained her grave prognosis, septal TN. He stated that the patient would not want to be dependent on machines to live and that she has been unable to leave the [place] [facility] for 2 months with ESRD on HD and he knew she was very ill. He states pursuing cardiac surgery would not be something she would want so he asked me to make her a do not resuscitate. He says they spoke often about this and he is confident in his decision. Critical Care Time Critical Care Time (minutes): 30
[2022-06-04 05:23] LABS: MANUAL DIFF FLAG NO
[2022-06-04 05:27] LABS: VBG Base Excess -5.6 mmol/L; VBG HCO3 21 mmol/L (22-26); VBG pCO2 46 mmHg; VBG pH 7.26 (7.32-7.43); VBG pO2 58 mmHg
[2022-06-04 05:28] LABS: Basophils Percent Auto 0.2 % (0-2); Eosinophils Percent Auto 0.1 % (0-4); Hematocrit 32.3 % (37.0-47.0); Hemoglobin 9.6 g/dl (12.0-16.0); Imm Gran Abs Auto 0.21 X10*3/uL (0.00-0.03); Imm Gran Pct Auto 1.3 % (0.0-0.4); Lymphocytes Percent Auto 6.4 % (20-40); Mean Corpuscular HGB Conc 29.7 g/dl (31.0-35.0); Mean Corpuscular Hemoglobin 31.5 pg (27.0-33.0); Mean Corpuscular Volume 105.9 fL (80.0-98.0); Mean Platelet Volume 11.2 fL (9.4-12.3); Monocytes Absolute Auto 1.1 X10*3/uL (0.1-1.2); Monocytes Percent Auto 6.6 % (2-11); NRBC Pct Auto 0.2 /100WBC (0.0-0.2); Neutrophils Absolute Auto 13.6 x10*3/uL (2.0-8.3); Neutrophils Percent Auto 85.4 % (45-73); Platelet Count 169 X10*3/uL (160-400); Red Blood Count 3.05 X10*6/uL (4.20-5.50); White Blood Count 15.9 X10*3/uL (4.8-10.8)
--- NOTE | 2022-06-04 05:43 | PC.NURSE ---
AT 0430 JANAE ALSTON WAS AT BEDSIDE. PT WAS VERY RESTLESS AND PRECEDEX IV ORDERED. WHILE THIS RN WENT TO GET THE PRECEDEX, PT PULLED OFF BIPAP MASK AND RESP THERAPIST WAS ALSO AT BEDSIDE AND WAS TRYING TO GET THE MASK ON PT. PT WAS DESATTING INTO THE 70'S AND THEN BECAME UNRESPONSIVE AND BRADYCARDIC. THIS RN RETURNED TO THE ROOM AT THIS POINT AND RICHIE SAUCEDA WAS CALLED. NSG HUMAN RESOURCE ADVISER WAS ON THE UNIT AT THE TIME.PT WAS GIVEN ATROPINE AND EPINEPHRINE AND SODIUM BICARB. SEE RICHIE SAUCEDA SHEET FOR DETAILS. . PT WAS INTUBATED. 12 LEAD EKG DONE. PT HAD ROSC AFTER ABOUT 10 MIN. BP LOW AND LEVOPHED TITRATED TO MAX DOSE OF 0.3 MCG/KG/MIN. HAS HAD NO URINE OUTPUT. KARMEN HUYNH CALLED PTS AND INFORMED HIM OF WHAT HAPPENED. HE STATED HE AND THE PT HAD PREVIOUSLY TALKED ABOUT THIS AND HE DECIDED TO NAKE THE PT A DNR. HE DOES NOT DRIVE BUT SOON HE CAN GET A RIDE, WILL COME IN. HE WILL SEE THE PT IF SHE SURVIVES AND AT THAT POINT WILL PROBABLY MAKE THE PT COMFORT MEASURES ONLY.
[2022-06-04 05:44] LABS: INTERNATIONAL NORM RATIO 1.4 (0.9-1.1); Prothrombin Time 16.4 SEC (10.0-13.1)
[2022-06-04 05:46] LABS: Alanine Aminotransferase 23 U/L (0-31); Albumin Level 3.9 g/dL (3.5-5.0); Alkaline Phosphatase 89 U/L (39-117); Anion Gap 34 (12-20); Aspartate Amino Transferase 33 U/L (5-31); Bilirubin Total 0.9 mg/dL (0.0-1.0); Blood Urea Nitrogen 30 mg/dL (9-16); Calcium 9.2 mg/dL (8.4-10.2); Carbon Dioxide 20 mmol/L (22-29); Chloride 95 mmol/L (96-108); Creatinine Clr Calc Pharmacy 10.5; Estimated Glomerular Filt Rate 12; Glucose Random 321 mg/dL (60-115); Magnesium 2.6 mg/dL (1.6-2.6); Phosphorus 7.8 mg/dL (2.7-4.5); Sodium 145 mmol/L (135-145); Total Protein 6.7 g/dL (6.5-8.0); Venous Blood Gas Refer to POC result
[2022-06-04 05:47] LABS: Partial Thromboplastin Time 45.4 SEC (26.0-36.4)
[2022-06-04 06:02] LABS: Lactic Acid 16.7 mmol/L (0.5-2.0)
[2022-06-04 06:45] LABS: B Type Natriuretic Peptide 8781 pg/mL (<100)
--- NOTE | 2022-06-04 06:46 | W.PM.CCHP ---
Procedures Date of Service Date of Service: 06/04/22 Intubation Intubation Comments: performed by Dr Lisa Paiz from ED Consent for Procedure: Emergent-no informed consent obtained Sedative: none Laryngoscope: fiber optic video scope ET tube size: 7.5 (24cm @ teeth) Tube placement confirmation: visualized tube passing through cords, equal breath sounds bilaterally, no breath sounds over epigastrium and confirmation by capnometry Patient tolerated procedure: well Intubation complications: none
[2022-06-04] MEDS: propofoL 1,000 MG/100 ML VIAL 7.1 MG IVCONT (07:00)
[2022-06-04] MEDS: Chlorhexidine Gluc Oral Rinse 15 ML MOUTHWASH BUCCAL (07:43)
[2022-06-04] MEDS: cefTRIAXone sodium 2 GM in 0.9 % Sodium Chloride 50 ML IV (07:43)
[2022-06-04 08:04] LABS: Troponin-I High Sensitivity 459.6 ng/L (<3.5-17.0)
[2022-06-04] MEDS: fentaNYL citrate/PF 100 MCG/2 ML VIAL 50 MCG IVPUSH (08:19)
[2022-06-04 08:49] LABS: Cancel Lactic Acid Canceled
[2022-06-04] MEDS: fentaNYL citrate/NS 1,000 MCG/100 ML PLAST..BAG 2.5 MCG IVCONT (10:24)
--- NOTE | 2022-06-04 11:33 | PC.NURSE ---
Assumed care at 0700. Patient began shift on mechanical ventilator, with minimal responsiveness. Patient was without cough or gag, had no purposeful movement of extremities, but moved her right toes slightly and not to command, was not following commands, was breathing over ventilator, PERRL pupils at 4 mm, no apparent response to pain. Patient was initially on Propofol gtt 20, levophed at 1, and vasopressin 0.04. Patient was medicated for pain, with PRN fentanyl at 08:19 with nonverbal signs of pain including accessory muscle use. ETT was #7.5, 24 cm at the teeth, with AC settings 18; 350; 5; and 100%. Patient was synchronous with ventilator. On telemetry, patient was in an accelerated junctional rhythm with BBB and frequent multifocal PVCs and bradycardia at times as low as 40's. Patient temporal artery temp was 96.5, then 96.0, with peripheral extremities very cool to touch, and patient was warmed with warm blankets and Rosita hugger per MD. Patient's family came in and HCP form was obtained, and patient's HCP specified he wanted patient to be off the ventilator, and that she would never have wanted to be on the ventilator or have a breathing tube. 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 RT was called and involved, and patient was extubated at 10:50, with family at bedside. Patient passed at 11:01. Per family, the patient is planned to be cremated, and the home will be [facility], in [place], [place]. [facility] was contacted and patient was declined for all donation, after discussion with donor specialiistKimberli, and Reference #[id number].
--- NOTE | 2022-06-04 12:41 | P.PNCC_ITS ---
Subjective Subjective Date of Service: 06/04/22 Interval History: Mrs. Enrique was admitted to ICU last night with acute respiratory failure. This is a remote note. The patient was a 69-year-old female with PMHx of ESRF on HD via left arm AVF.? Also h/o s/p CABG/AVR, PVD, T2DM, afib not on a blood thinner, on aspirin, HTN, HLD, anxiety, MDD, TIARA, GERD and Gout. ?She had her regular HD session early yesterday. She was BIBA after c/o chest pain and SOB. Not normall on supplemental oxygen.? At the scene, EMS reported O2 sat 85% on RA.? Upon arrival to the emergency department, the patient reported mild chest pain, nonradiating, and she denied any recent illness, fever, chills, nausea, vomiting, abdominal pain, or urinary symptoms.?? She did however endorse shortness of breath both at rest and with exertion. In the ED, her vitals were heart rate 87 in afib, respiratory rate 30, BP 106/64, O2 sat 93% on 5L NC.? Labs were significant for WBC 12.5, d dimer 539, BUN/creatinine 24/3.12, bicarb 35, Lactic acid 2.6, troponin 89.4, BNP 11,896.? Chest x-ray showed CHF and cardiomegaly. The patient was given ceftriaxone, lasix, and dilauded.? Nephrology was consulted, and arrange for dialysis today.? On my bedside echo in the ED, the patient had at least moderate LVH, with a specially marked septal hypertrophy.? LV function was normal with no gross RWMAs.? EF about 60%.? Could not assess the RV size because of inadequate endocardial definition, but I think it was normal sized.? The aortic valve looked stenotic and there was an about 8 mm solid sub aortic mass in the left ventricular outflow tract of unclear etiology.? No significant MR or TR.? IVC measured 1.95 cm, with slight inspiratory collapse. My suspicion was that her chest pain and resp distress/CHF was 2? to an acute [place].? Because of mild respiratory distress, the patient was admitted to the ICU.? The patient had no IV access so a TLC was placed.? We were told by the ED staff that they had spoke with the patient?s daughter who indicated that the patient had ?full code? status, at the patient?s request.? We spoke with the patient and she confirmed that, to the extent possible.? Lactic acid levels krishna, as did the patient?s troponin.? No fluids were given bec of the echo and the seeming CHF on roentgenograms.? The chest CT showed a right lung pneumonia, so the patient was given antibiotics. At 0430 this morning the patient had a bradycardic arrest.? The patient was given CPR, ACLS, and was intubated.? She had ROSC after 3mg epi and 9 minutes of CPR.? Post-arrest EKG showed ST elevation in Leads V1-4.? She required high dose vasopressors to maintain her BP. The situation was discussed with the patient's .? He did not want any further interventions and requested that we change her to DNR status. 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 We put her on a low-dose fentanyl infusion and changed her over to PSV.? The drips were turned off and the patient was extubated.? She passed about 10 minutes later with the at the bedside. Cause of is acute STEMI. Time (mult telephone calls with nursing staff; chart rev and summary of hosp course): 45 min. Critical Care Time (minutes): 0 Physical Exam Vital Signs: Vital Signs: Last Vital Signs Temp 96.7 F L 06/04/22 08:00 Pulse 80 06/04/22 10:00 Resp 19 06/04/22 10:00 BP 104/65 06/04/22 10:00 Pulse Ox 99 06/04/22 10:00 O2 Del Method 06/04/22 11:00 O2 Flow Rate 15 06/03/22 22:27 FiO2 70 06/04/22 10:42 Oxygen Flow Rate 100 06/04/22 01:00 BMI result Body Mass Index 24.6 Objective Data Labs CBC & Chem 7: 06/04/22 05:16 06/04/22 05:16 Labs: Laboratory Results - last 24 hr 06/03/22 06/03/22 06/03/22 17:30 17:30 17:30 WBC 12.5 H RBC 3.75 L D Hgb 11.7 L D Hct 37.8 D MCV 100.8 H MCH 31.2 MCHC 31.0 RDW 18.8 H Plt Count 205 D MPV 10.5 Immature Gran % (Auto) 0.4 Neut % (Auto) 86.9 H Lymph % (Auto) 3.9 L [place] % (Auto) 8.2 Eos % (Auto) 0.2 Baso % (Auto) 0.4 Lymph # (Auto) 0.5 L [place] # (Auto) 1.0 Eos # (Auto) 0.0 Baso # (Auto) 0.1 Abs Immat Gran (auto) 0.05 H Absolute Neuts (auto) 10.9 H Absolute Nucleated RBC 0.000 Nucleated RBC % (auto) 0.0 Smear Tech's Comments PT INR APTT D-Dimer High Sensitivty VBG pH VBG pCO2 VBG pO2 VBG HCO3 VBG O2 Saturation VBG Base Excess Sodium 142 Potassium 4.1 Chloride 93 L Carbon Dioxide 35 H Anion Gap 18 BUN 24 H D Creatinine 3.12 H Estim Creat Clear Calc 11.1 Estimated GFR 14 Random Glucose 181 H Lactic Acid Lactic Acid F/U @ 2Hr Lactic Acid F/U @ 4Hr Calcium 9.8 D Phosphorus Magnesium 2.2 Total Bilirubin 0.8 AST 14 ALT < 6 Alkaline Phosphatase 111 Troponin I High Sens 89.4 H* B-Natriuretic Peptide 05024 H Total Protein 7.8 D Albumin 4.1 D Procalcitonin COVID-19 ([facility]) COVID-19 Clin Com 06/03/22 06/03/22 06/03/22 17:30 17:30 17:30 WBC RBC Hgb Hct MCV MCH MCHC RDW Plt Count MPV Immature Gran % (Auto) Neut % (Auto) Lymph % (Auto) [place] % (Auto) Eos % (Auto) Baso % (Auto) Lymph # (Auto) [place] # (Auto) Eos # (Auto) Baso # (Auto) Abs Immat Gran (auto) Absolute Neuts (auto) Absolute Nucleated RBC Nucleated RBC % (auto) Smear Tech's Comments PT 12.6 INR 1.1 APTT Cancelled D-Dimer High Sensitivty 539 VBG pH VBG pCO2 VBG pO2 VBG HCO3 VBG O2 Saturation VBG Base Excess Sodium Potassium Chloride Carbon Dioxide Anion Gap BUN Creatinine Estim Creat Clear Calc Estimated GFR Random Glucose Lactic Acid 2.6 H* Lactic Acid F/U @ 2Hr Lactic Acid F/U @ 4Hr Calcium Phosphorus Magnesium Total Bilirubin AST ALT Alkaline Phosphatase Troponin I High Sens B-Natriuretic Peptide Total Protein Albumin Procalcitonin COVID-19 ([facility]) Negative COVID-19 Clin Com See Note 06/03/22 06/03/22 06/03/22 17:39 21:00 21:00 WBC RBC Hgb Hct MCV MCH MCHC RDW Plt Count MPV Immature Gran % (Auto) Neut % (Auto) Lymph % (Auto) [place] % (Auto) Eos % (Auto) Baso % (Auto) Lymph # (Auto) [place] # (Auto) Eos # (Auto) Baso # (Auto) Abs Immat Gran (auto) Absolute Neuts (auto) Absolute Nucleated RBC Nucleated RBC % (auto) Smear Tech's Comments PT INR APTT D-Dimer High Sensitivty VBG pH 7.46 H VBG pCO2 54 VBG pO2 52 VBG HCO3 39 H VBG O2 Saturation 79.0 VBG Base Excess 13.1 Sodium Potassium Chloride Carbon Dioxide Anion Gap BUN Creatinine Estim Creat Clear Calc Estimated GFR Random Glucose Lactic Acid Lactic Acid F/U @ 2Hr 4.7 H* Lactic Acid F/U @ 4Hr Calcium Phosphorus Magnesium Total Bilirubin AST ALT Alkaline Phosphatase Troponin I High Sens 162.1 H* D B-Natriuretic Peptide Total Protein Albumin Procalcitonin COVID-19 ([facility]) COVID-19 Clin Com 06/04/22 06/04/22 06/04/22 00:14 00:14 00:14 WBC RBC Hgb Hct MCV MCH MCHC RDW Plt Count MPV Immature Gran % (Auto) Neut % (Auto) Lymph % (Auto) [place] % (Auto) Eos % (Auto) Baso % (Auto) Lymph # (Auto) [place] # (Auto) Eos # (Auto) Baso # (Auto) Abs Immat Gran (auto) Absolute Neuts (auto) Absolute Nucleated RBC Nucleated RBC % (auto) Smear Tech's Comments PT INR APTT D-Dimer High Sensitivty VBG pH VBG pCO2 VBG pO2 VBG HCO3 VBG O2 Saturation VBG Base Excess Sodium 139 Potassium 3.6 Chloride 94 L Carbon Dioxide 30 H Anion Gap 19 BUN 28 H Creatinine 3.53 H Estim Creat Clear Calc 10.8 Estimated GFR 13 Random Glucose 238 H Lactic Acid Lactic Acid F/U @ 2Hr Lactic Acid F/U @ 4Hr 6.2 H* Calcium 9.5 Phosphorus 5.9 H Magnesium 2.2 Total Bilirubin 0.8 AST 17 ALT 6 Alkaline Phosphatase 112 Troponin I High Sens 259.1 H* D B-Natriuretic Peptide Total Protein 7.0 Albumin 3.7 Procalcitonin COVID-19 ([facility]) COVID-19 Clin Com 06/04/22 06/04/22 06/04/22 00:14 00:14 00:15 WBC 16.9 H RBC 3.63 L Hgb 11.3 L Hct 37.1 MCV 102.2 H MCH 31.1 MCHC 30.5 L RDW 19.0 H Plt Count 212 MPV 10.4 Immature Gran % (Auto) 0.8 H Neut % (Auto) 85.8 H Lymph % (Auto) 2.5 L [place] % (Auto) 10.5 Eos % (Auto) 0.1 Baso % (Auto) 0.3 Lymph # (Auto) 0.4 L [place] # (Auto) 1.8 H Eos # (Auto) 0.0 Baso # (Auto) 0.1 Abs Immat Gran (auto) 0.14 H Absolute Neuts (auto) 14.5 H Absolute Nucleated RBC 0.000 Nucleated RBC % (auto) 0.0 Smear Tech's Comments VERIFIED PT INR APTT D-Dimer High Sensitivty VBG pH 7.37 VBG pCO2 49 VBG pO2 61 VBG HCO3 28 H VBG O2 Saturation 86.0 VBG Base Excess 2.9 Sodium Potassium Chloride Carbon Dioxide Anion Gap BUN Creatinine Estim Creat Clear Calc Estimated GFR Random Glucose Lactic Acid Lactic Acid F/U @ 2Hr Lactic Acid F/U @ 4Hr Calcium Phosphorus Magnesium Total Bilirubin AST ALT Alkaline Phosphatase Troponin I High Sens B-Natriuretic Peptide Total Protein Albumin Procalcitonin 0.51 COVID-19 ([facility]) COVID-19 Clin Com 06/04/22 06/04/22 06/04/22 05:16 05:16 05:16 WBC 15.9 H RBC 3.05 L Hgb 9.6 L Hct 32.3 L MCV 105.9 H MCH 31.5 MCHC 29.7 L RDW 19.0 H Plt Count 169 MPV 11.2 Immature Gran % (Auto) 1.3 H Neut % (Auto) 85.4 H Lymph % (Auto) 6.4 L [place] % (Auto) 6.6 Eos % (Auto) 0.1 Baso % (Auto) 0.2 Lymph # (Auto) 1.0 L [place] # (Auto) 1.1 Eos # (Auto) 0.0 Baso # (Auto) 0.0 Abs Immat Gran (auto) 0.21 H Absolute Neuts (auto) 13.6 H Absolute Nucleated RBC 0.030 H Nucleated RBC % (auto) 0.2 Smear Tech's Comments PT 16.4 H INR 1.4 H APTT 45.4 H D-Dimer High Sensitivty VBG pH VBG pCO2 VBG pO2 VBG HCO3 VBG O2 Saturation VBG Base Excess Sodium 145 Potassium 4.0 Chloride 95 L Carbon Dioxide 20 L Anion Gap 34 H BUN 30 H Creatinine 3.64 H Estim Creat Clear Calc 10.5 Estimated GFR 12 Random Glucose 321 H Lactic Acid Lactic Acid F/U @ 2Hr Lactic Acid F/U @ 4Hr Calcium 9.2 Phosphorus 7.8 H Magnesium 2.6 Total Bilirubin 0.9 AST 33 H D ALT 23 Alkaline Phosphatase 89 D Troponin I High Sens B-Natriuretic Peptide Total Protein 6.7 Albumin 3.9 Procalcitonin COVID-19 ([facility]) COVID-19 Clin Com 06/04/22 06/04/22 06/04/22 05:16 05:16 05:22 WBC RBC Hgb Hct MCV MCH MCHC RDW Plt Count MPV Immature Gran % (Auto) Neut % (Auto) Lymph % (Auto) [place] % (Auto) Eos % (Auto) Baso % (Auto) Lymph # (Auto) [place] # (Auto) Eos # (Auto) Baso # (Auto) Abs Immat Gran (auto) Absolute Neuts (auto) Absolute Nucleated RBC Nucleated RBC % (auto) Smear Tech's Comments PT INR APTT D-Dimer High Sensitivty VBG pH 7.26 L VBG pCO2 46 VBG pO2 58 VBG HCO3 21 L VBG O2 Saturation 80.0 VBG Base Excess -5.6 Sodium Potassium Chloride Carbon Dioxide Anion Gap BUN Creatinine Estim Creat Clear Calc Estimated GFR Random Glucose Lactic Acid 16.7 H* Lactic Acid F/U @ 2Hr Lactic Acid F/U @ 4Hr Calcium Phosphorus Magnesium Total Bilirubin AST ALT Alkaline Phosphatase Troponin I High Sens B-Natriuretic Peptide 8781 H Total Protein Albumin Procalcitonin COVID-19 ([facility]) COVID-19 Clin Com 06/04/22 07:16 WBC RBC Hgb Hct MCV MCH MCHC RDW Plt Count MPV Immature Gran % (Auto) Neut % (Auto) Lymph % (Auto) [place] % (Auto) Eos % (Auto) Baso % (Auto) Lymph # (Auto) [place] # (Auto) Eos # (Auto) Baso # (Auto) Abs Immat Gran (auto) Absolute Neuts (auto) Absolute Nucleated RBC Nucleated RBC % (auto) Smear Tech's Comments PT INR APTT D-Dimer High Sensitivty VBG pH VBG pCO2 VBG pO2 VBG HCO3 VBG O2 Saturation VBG Base Excess Sodium Potassium Chloride Carbon Dioxide Anion Gap BUN Creatinine Estim Creat Clear Calc Estimated GFR Random Glucose Lactic Acid Lactic Acid F/U @ 2Hr Lactic Acid F/U @ 4Hr Calcium Phosphorus Magnesium Total Bilirubin AST ALT Alkaline Phosphatase Troponin I High Sens 459.6 H* D B-Natriuretic Peptide Total Protein Albumin Procalcitonin COVID-19 ([facility]) COVID-19 Clin Com Microbiology Microbiology Results: Microbiology 06/04/22 00:14 Heel, Left Gram Stain - Final 06/04/22 00:14 Foot Left Gram Stain - Final Quality Stroke Does the patient have a stroke diagnosis?: No VTE Prior VTE?: No VTE Risk Level:: Medical - low VTE Device Contraindication: N/A - Device Ordered VTE Drug Contraindication: N/A - Med Ordered
--- NOTE | 2022-06-04 19:29 | PM.DDS ---
Discharge Sum: Prov Provider Primary care physician: Unknown Physician Admitting clinician: Stefani Nassar Attending physician on admission: Tavo Mathis Consults: 06/03/22 20:21 Consult to Nephrology Stat Consulting Provider: Jett Baer Reason for consultation: elevated bun cr, ? CTA Pronouncing clinician: Tavo Mathis Discharge Sum: Diag PCOD Cause of : Acute myocardial infarction Contributing Factors (1) Congestive heart failure: (2) Respiratory failure: (3) ESRD on dialysis: (4) Ulcer of left heel and midfoot: (5) Elevated troponin I level: (6) Multifocal pneumonia: (7) Osteomyelitis of ankle or foot, left, acute: Discharge Sum: Summary Date and Time Date of admission: 06/03/22 22:44 Summary Details: Mrs Enrique was a 69-year-old female with PMHx of ESRF on HD via left arm AVF.? Also h/o s/p CABG/AVR, PVD, T2DM, afib not on a blood thinner, on aspirin, HTN, HLD, anxiety, MDD, TIARA, GERD and Gout. ?She had her regular HD session early yesterday. She was BIBA after c/o chest pain and SOB. Not on home O2. At the scene, EMS reported O2 sat 85% on RA.? Upon arrival to the emergency department, the patient reported mild chest pain, nonradiating, and she denied any recent illness, fever, chills, nausea, vomiting, abdominal pain, or urinary symptoms.?? She did however endorse shortness of breath both at rest and with exertion. In the ED, her vitals were heart rate 87 in afib, respiratory rate 30, BP 106/64, O2 sat 93% on 5L NC.? Labs were significant for WBC 12.5, d dimer 539, BUN/creatinine 24/3.12, bicarb 35, Lactic acid 2.6, troponin 89.4, BNP 11,896.? Chest x-ray showed CHF and cardiomegaly. The patient was given ceftriaxone, lasix, and dilauded.? Nephrology was consulted, and arrange for dialysis today.? On my bedside echo in the ED, the patient had at least moderate LVH, with a specially marked septal hypertrophy.? LV function was normal with no gross RWMAs.? EF about 60%.? Could not assess the RV size because of inadequate endocardial definition, but I think it was normal sized.? The aortic valve looked stenotic and there was an about 8 mm solid sub aortic mass in the left ventricular outflow tract of unclear etiology.? No significant MR or TR.? IVC measured 1.95 cm, with slight inspiratory collapse. Her chest pain and resp distress/CHF was likely 2? to an acute [place].? Because of mild respiratory distress, the patient was admitted to the ICU.? The patient had no IV access so a TLC was placed.? We were told by the ED staff that they had spoke with the patient?s daughter who indicated that the patient had ?full code? status, at the patient?s request.? We spoke with the patient and she confirmed that, to the extent possible.? Lactic acid levels krishna, as did the patient?s troponin.? No fluids were given bec of the echo and the seeming CHF on roentgenograms.? The chest CT showed a right lung pneumonia, so the patient was given antibiotics. At 0430 this morning the patient had a bradycardic arrest.? The patient was given CPR, ACLS, and was intubated.? She had ROSC after 3mg epi and 10 minutes of CPR.? Post-arrest EKG showed ST elevation in Leads V1-4.? She required high dose vasopressors to maintain her BP. The situation was discussed with the patient's .? He did not want any further interventions and requested that we changed her to DNR status. 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 We put her on a low-dose fentanyl infusion and changed her over to PSV.? The drips were turned off and the patient was extubated.? She passed about 10 minutes later with the at the bedside. Cause of is acute STEMI. Additional Data Confirmation of as documented by pronouncing clinician: no pulse, no respirations, no heart sounds and pupils fixed and dilated Family: at bedside Attending/PCP notified?: Yes Attending physician: Tavo Mathis MD Was code activated?: No Autopsy requested?: No lease examiner notified?: No Organ bank notified?: Yes Advance directives: No Hospice patient?: No
--- NOTE | 2022-06-15 08:22 | P.CDIR_ITS ---
Documented by User: Bibi Samuel CCS, CDIS 06/15/22 08:27 Retrospective Query PHYSICIAN'S DOCUMENTATION REQUEST Date of Query: 06/15/22821 Patient Name: Navneet Enrique Admit Date: 06/03/22 Dear Doctor, A review of the medical record indicates additional documentation may be needed. Please review below and update the documentation accordingly. Clinical Indicators: Risk Factors/Clinical Indicators/Treatments ED 06/03 - CXR noted to have CHF and cardiomegaly, will hold administering fluids at this time, clearly fluid overload. BNP 11,896 EF around 60% Admit to ICU for CHF and hypoxic respiratory failure. note: Congestive heart failure/ respiratory failure. Please provide further specificity regarding the most likely type and acuity of CHF you are evaluating, treating, or monitoring. Examples include: Type: * Systolic * Diastolic * Combined Systolic/Diastolic * Other ? please specify * Unable to determine Acuity: * Acute * Chronic * Acute on chronic * Unable to determine Use of terms such as suspected, likely, concern for, or probable (associated with a specific diagnosis that is being evaluated, monitored, or treated as if it exists) are acceptable and can be coded in the inpatient setting, when documented at the time of discharge. Thank you, Bibi Samuel CCS, CDIS Extension: [phone] Please use your independent medical judgment in providing your response. THIS QUERY IS PART OF THE PERMANENT MEDICAL RECORD Documented by User: Tavo Mathis MD 06/20/22 09:17 Retrospective Query Provider Response: CHF (Unable to determine the nature of her CHF)
== END 2022-06-04 11:01 | disposition expired ==
LOC: HO.ED 19:08 → HO.EDOVER 22:55 → HO.ICU 23:04
PROVIDERS: Physician Assistant; Admitting Provider Physician Assistant; Emergency Provider Student in an Organized Health Care Education/Training Program; Visit Provider Physician Assistant
DX: I21.3 ST elevation (STEMI) myocardial infarction of unspecified site (principal); J18.9 Pneumonia, unspecified organism; N18.6 End stage renal disease; J96.00 Acute respiratory failure, unspecified whether with hypoxia or hypercapnia; I13.2 Hypertensive heart and chronic kidney disease with heart failure and with stage 5 chronic kidney disease, or end stage renal disease; L97.429 Non-pressure chronic ulcer of left heel and midfoot with unspecified severity; M86.172 Other acute osteomyelitis, left ankle and foot; Z51.5 Encounter for palliative care; Z66 Do not resuscitate; I48.91 Unspecified atrial fibrillation; I25.10 Atherosclerotic heart disease of native coronary artery without angina pectoris; E78.5 Hyperlipidemia, unspecified; F41.9 Anxiety disorder, unspecified; E11.621 Type 2 diabetes mellitus with foot ulcer; Z95.2 Presence of prosthetic heart valve; K21.9 Gastro-esophageal reflux disease without esophagitis; M10.9 Gout, unspecified; F32.9 Major depressive disorder, single episode, unspecified; E11.69 Type 2 diabetes mellitus with other specified complication; I50.9 Heart failure, unspecified; G47.33 Obstructive sleep apnea (adult) (pediatric); E11.22 Type 2 diabetes mellitus with diabetic chronic kidney disease; Z99.2 Dependence on renal dialysis; Z20.822 Contact with and (suspected) exposure to COVID-19; Z95.1 Presence of aortocoronary bypass graft; Z79.82 Long term (current) use of aspirin; Z79.899 Other long term (current) drug therapy; Z86.74 Personal history of sudden cardiac arrest
CPT/HCPCS: 36415; 71045; 71275; 73630; 80053; 82803; 83605; 83735; 83880; 84100; 84145; 84484; 85025; 85379; 85610; 85730; 87040; 87071; 87077; 87186; 87205; 87635; 93005; 94002; 94660; 99285; C1758; J0171; J0456; J0461; J0696; J1170; J1940; J3010; P9047; Q9967

== ENCOUNTER 2022-06-04 | Outpatient (REF) | payer MEDICARE, SELFPAY | END 2022-06-04 00:01 | disposition home or self-care (01) | LOC: HO.MMNH1L | PROVIDERS: Visit Provider Family Medicine | DX: Z13.89 Encounter for screening for other disorder (principal) ==